=== PATIENT | male | born 1990 | race Caucasian/White ===

== ENCOUNTER 2017-12-04 18:52 | Emergency (ER) | payer SELFPAY ==
[2017-12-05 00:03] VITALS: BP 108/78
--- NOTE | 2017-12-05 00:33 | Emergency Department Report ---
HPI - General Chief Complaint: Psych Time Seen by Provider: 12/05/17 00:20 - HPI HPI: This is a 27-year-old male presents to the emergency department with complaint of auditory hallucinations have been going on since he used crystal meth 3 days ago. He denies any visualization, suicidal or homicidal ideations. He says that these are voices of people that he recognizes that they are not talking to him and instead he just appears to hear their conversation. He denies any diagnosis of any psychiatric conditions. He says he does not use drugs on a regular basis. He denies any medical history. He has not taken anything for her symptoms prior to presentation. ED Past Medical Hx - Past Medical History Previous Medical History?: No - Surgical History Past Surgical History?: No - Social History Smoking Status: Current Some Day Smoker Substance Use Type: Alcohol, Marijuana, Methamphetamines ED Review of Systems ROS: Stated complaint: HEARING VOICES/PYSHCIATRIC EVAL. Other details as noted in HPI Comment: All other systems reviewed and negative Constitutional: denies: chills, fever Eyes: denies: eye pain, eye discharge, vision change ENT: denies: ear pain, throat pain Respiratory: denies: cough, shortness of breath, wheezing Cardiovascular: denies: chest pain, palpitations Gastrointestinal: denies: abdominal pain, nausea, diarrhea Genitourinary: denies: urgency, dysuria Musculoskeletal: denies: back pain, joint swelling, arthralgia Skin: denies: rash, lesions Neurological: denies: headache, weakness, paresthesias Psychiatric: auditory hallucinations. denies: visual hallucinations, homicidal thoughts, suicidal thoughts Physical Exam - Physical Exam Vital Signs: Vital Signs 12/04/17 12/05/17 18:55 00:02 Temperature 98.8 F 98.2 F Pulse Rate 106 H 81 Respiratory 18 18 Rate Blood Pressure 136/85 108/78 O2 Sat by Pulse 96 98 Oximetry Physical Exam: GENERAL: The patient is well-developed well-nourished. HENT: Normocephalic. Atraumatic. Patient has moist mucous membranes. EYES: Extraocular motions are intact. Pupils equal reactive to light bilaterally. NECK: Supple. Trachea is midline. CHEST/LUNGS: Clear to auscultation. There is no respiratory distress noted. HEART/CARDIOVASCULAR: Regular. There is no tachycardia. There is no murmur. ABDOMEN: Abdomen is soft, nontender. Patient has normal bowel sounds. There is no abdominal distention. SKIN: Skin is warm and dry. NEURO: The patient is awake, alert, and oriented. The patient is cooperative. The patient has no focal neurologic deficits. The patient has normal speech. MUSCULOSKELETAL: There is no tenderness or deformity. There is no limitation range of motion. There is no evidence of acute injury. ED Course Vital Signs 12/04/17 12/05/17 18:55 00:02 Temperature 98.8 F 98.2 F Pulse Rate 106 H 81 Respiratory 18 18 Rate Blood Pressure 136/85 108/78 O2 Sat by Pulse 96 98 Oximetry ED Medical Decision Making - Lab Data Result diagrams: 12/05/17 01:00 12/05/17 01:00 - Medical Decision Making While the patient does admit to doing methamphetamines about 3 days ago and does admit to having auditory hallucinations, he does not appear to be a candidate to be made a 1013. He denies any visualization's, suicidal or homicidal ideations. He does have auditory hallucinations but they're mostly him hearing someone else's conversation and not voices that aren't directing him to do something inappropriate. He was seen by the crisis counselor who agrees that the patient does not appear to need inpatient psychiatric placement and has given referrals for [facility]. The language line and language interpretation applications were used. Vital signs stable. Labs were unremarkable. He will return to the ER with any worsening of symptoms or any acute distress. - Differential Diagnosis substance abuse, schizophrenia, schizoaffective, bipolar Critical Care Time: No Critical care attestation.: If time is entered above; I have spent that time in minutes in the direct care of this critically ill patient, excluding procedure time. ED Disposition Clinical Impression: Auditory hallucinations Disposition: DC-01 TO HOME OR SELFCARE Is pt being admited?: No Condition: Stable Instructions: Methamphetamine Abuse (ED) Additional Instructions: Please follow up at the psychiatric facility that you were given a referral [facility]. Return to the emergency Department with any worsening of your symptoms or any acute distress. Referrals: PRIMARY CARE, [Primary Care Provider] - 3-5 Days Print Language: EGYPTIAN
[2017-12-05 01:38] LABS: Basophils # (Auto) 0.1 K/mm3 (0.0-0.1); Eosinophils # (Auto) 0.2 K/mm3 (0.0-0.4); Eosinophils % (Auto) 2.8 % (0.0-4.3); Hematocrit 48.2 % (35.5-45.6); Hemoglobin 16.5 gm/dl (11.8-15.2); Lymphocytes # (Auto) 1.4 K/mm3 (1.2-5.4); Lymphocytes % (Auto) 16.2 % (13.4-35.0); Mean Corpuscular HGB Conc 34 % (32-34); Mean Corpuscular Hemoglobin 30 pg (28-32); Mean Corpuscular Volume 86 fl (84-94); Platelet Count 303 K/mm3 (140-440); Red Cell Distribution Width 13.2 % (13.2-15.2)
[2017-12-05 01:48] LABS: BUN/Creatinine Ratio 24; Blood Urea Nitrogen 26 mg/dL (9-20); Hemolysis Index 10
[2017-12-05 03:18] LABS: Bilirubin,Urine NEG (Negative); Blood,Urine MOD (Negative); Color,Urine Yellow (Yellow); Nitrite,Urine NEG (Negative); Urobilinogen,Urine < 2.0 mg/dL (<2.0); WBC,Urine < 1.0 /HPF (0.0-6.0)
[2017-12-05 03:24] LABS: Amphetamine Screen,Urine PRESUMPTIVE NEGATIVE; Benzodiazepines Screen,Urine PRESUMPTIVE NEGATIVE; Cocaine Screen,Urine PRESUMPTIVE NEGATIVE; Methadone Screen,Urine PRESUMPTIVE NEGATIVE; Opiate Screen,Urine PRESUMPTIVE NEGATIVE
[2017-12-05 03:46] LABS: Cannabinoid Screen,Urine PRESUMPTIVE NEGATIVE
== END 2017-12-05 03:05 | disposition home or self-care (01) ==
LOC: ED 18:52
DX: R44.0 Auditory hallucinations (principal); F15.10 Other stimulant abuse, uncomplicated; F12.10 Cannabis abuse, uncomplicated; F17.200 Nicotine dependence, unspecified, uncomplicated; Z79.899 Other long term (current) drug therapy
CPT/HCPCS: 36415; 80048; 80307; 81001; 85025; 99284; G0480; 80320